=== PATIENT | female | born 1985 | race African-American/Black ===

== ENCOUNTER 2017-09-05 21:16 | Emergency (ER) | payer OTHER ==
[~2017-09-05] VITALS: Ht 170.2 cm; Wt 127.0 kg
--- NOTE | 2017-09-05 22:15 | NUR ---
Patient discharged to home in stable conditon. Written and verbal after care instructions given. Patient verbalizes understanding of instructions. Patient reported reduced pain and anxiety related to knee injury upon discharge. Patient able to ambulate assisted by crutches. Patient left with all personal belongings.
[2017-09-05 22:22] VITALS: BP 122/78
== END 2017-09-05 22:15 | disposition home or self-care (01) ==
LOC: ER 21:16
DX: S83.92XA Sprain of unspecified site of left knee, initial encounter (principal); V89.2XXA Person injured in unspecified motor-vehicle accident, traffic, initial encounter; Y93.89 Activity, other specified; Y99.8 Other external cause status; Y92.410 Unspecified street and highway as the place of occurrence of the external cause
CPT/HCPCS: A4663